=== PATIENT | male | born 1950 | race Caucasian/White ===

== ENCOUNTER → 2016-12-18 | Day surgery (SDC) | payer OTHER, MEDICARE ==
[2016-12-12 10:04] VITALS: BMI 38.9
[~2016-12-18] MED LIST: BSS 500 ml-Vancomycin 10 mg-Phenylephrine 1 mg Irrigation IR ONE; CHONDROITIN SULFATE 0.5 ML/PFS INTRAOC ONE; DEXAMETHASONE 4 MG/ML VIAL IV PRN; DIAZEPAM 5 MG TAB PO PRN; FENTANYL 100 MCG/2 ML VIAL IV PRN; FENTANYL 100 MCG/2 ML VIAL ONE; HYDROCODONE 5 MG/ACETAMIN 325 MG TAB PO PRN; Hyaluronate Sodium (Provisc) 5.5 mg/0.55 ml syringe INTRAOC ONE; KETOROLAC TROMETH 30 MG/ML VIAL IV PRN; LABETALOL 20 MG/4 ML SYRINGE IV PRN; LR 1,000 ML IV ONE; LR 1,000 ML IV SCH; MIDAZOLAM 2 MG/2 ML VIAL ONE; NS 1,000 ML IV SCH; NS 250 ML IV SCH; ONDANSETRON HCL 4 MG/2 ML VIAL IV PRN; PHENYLEPHRINE 2.5% OPHTH SOLN 2 ML BOT OP EYE ONE; SCOPOLAMINE TRANSDERMAL PATCH TOP PRN; TETRACAINE 0.5% 2 ML OPHTH SOLN OP EYE ONE; TETRACAINE 0.5% 2 ML OPHTH SOLN OP EYE PRN; TROPICAMIDE 1% OPHTH SOLN 2 ML BOTTLE OP EYE ONE; Vancomycin 10 MG, Phenylephrine 1,000 MCG in Balanced Salt Solution 500 ML IO ONE; hydrALAZINE 20 MG/ML VIAL IV PRN
--- NOTE | 2016-12-18 07:11 | SC.ANESEVA ---
Anesthesia Eval & Plan ([facility]) - Providers Stated Procedure: left eye Surgeon:: Neha Lobo - Medications/Allergies Allergies: Allergies No Known Allergies Allergy (Verified 01/28/14 06:21) Current Medication List: Reviewed - Focused Physical Exam NPO since: after Midnight Mallampati: Class II Thyromental Distance: Greater than 3 Neck: Full Range of Motion Cardiovascular/Chest: Normal Respiratory: Lungs clear Any problems with anesthesia, including nausea and vomiting?: No Any relatives with a history of Malignant Hyperthermia?: No Prone to Motion Sickness: No Other: Diagnoses COMBINED FORMS OF AGE-RELATED CATARACT, LEFT EYE (12/18/16) Allergies Allergy/AdvReac Type Severity Reaction Status Date / Time No Known Allergies Allergy Verified 01/28/14 06:21 Home Medications Medication Instructions Recorded Last Taken Type Aspirin [Aspirin, Chewable] 81 mg PO .EOD 03/13/13 01/29/14 08:00 History Atorvastatin Calcium [Lipitor] 40 mg PO DAILY 03/13/13 01/30/14 08:00 History CYANOCOBALAMIN (Vitamin B-12) 1,000 mcg SQ DAILY #1 vial 01/30/14 01/30/14 13: 00 Rx [Vitamin B-12 (cyanocobalamin)] Cetirizine HCl 10 mg PO DAILY 11/01/16 Unknown History Lacosamide [Vimpat] 50 mg PO BID 11/01/16 Unknown History Lamotrigine [Lamotrigine ER] 50 mg PO DAILY 11/01/16 Unknown History Metoprolol Succinate 25 mg PO DAILY 11/01/16 12/18/16 History Multivitamin [Multivitamins] 1 tab PO DAILY 11/01/16 Unknown History Pantoprazole Sodium [Protonix] 40 mg PO DAILY 11/01/16 12/18/16 History Prasugrel HCl [Effient] 10 mg PO DAILY 11/01/16 12/18/16 History Ramipril [Altace] 2.5 mg PO BID 11/01/16 Unknown History Height and Weight Patient's height 6 ft 1 in Patient's weight 134 kg Weight (Calculated Kilograms) 134.000 BMI 38.9 Vital Signs Temperature 97.4 F L 12/18/16 06:22 Pulse Rate 56 L 12/18/16 06:22 Respiratory Rate 20 12/18/16 06:22 Blood Pressure 111/56 L 12/18/16 06:22 Pulse Oxygen Saturation 97 12/18/16 06:22 - Anesthetic Plan Anesthesia Type: MAC ASA Class: 3 - Focused Review of Systems Cardiac History: Yes: Hx Hypertension, Hx Coronary Stent (STENTS X7 [place] ), Hx Cardiac Disorders, Hx Abnormal Cholesterol/Hyperlipidemia ( DYSLIPIDEMIA) HEENT: Yes: Hx Vision Problem (wears glasses) Respiratory: Yes: Hx Sleep Apnea (CPAP), Hx CPAP Dependent Gastrointestinal: Yes: Hx Gastroesophageal Reflux Disease, Hx Gastrointestinal Disorders, Hx Colonoscopy Neurological/Musculoskeletal: Yes: Hx Confusion (acute intermittent confusion- new onset), Hx Head Trauma (slight concusion abt 5 yrs ago) Smoking Status: Former smoker Surgical History: Yes: T&A
--- NOTE | 2016-12-18 07:42 | HIMOPRPT ---
DATE OF PROCEDURE: 12/18/16 PREOPERATIVE DIAGNOSIS: Cataract Left eye. POSTOPERATIVE DIAGNOSIS: Cataract Left eye. PROCEDURE: Cataract extraction by phacoemulsification of the Left eye SURGEON: Neha Lobo MD. ANESTHESIA: IV Sedation/Topical. COMPLICATIONS: None. PRE-OPERATIVE EVALUATION: The patient has been examined and deemed medically stable for cataract extraction with no apparent need for inpatient observation; outpatient setting is appropriate. Patient appears to be oriented to time, place and person. PROCEDURE IN DETAIL: The correct eye confirmed by patient, doctor, staff and paperwork. The operative eye was then marked by the doctor in the preoperative area. Eye drops were instilled into the operative eye to dilate the pupil. The patient was transported to the operating room and was placed in the supine position. A time out was performed before the beginning of the procedure. The operative eye was prepped and draped in the usual sterile fashion for ophthalmic surgery, taking care to isolate the lashes from the surgical field. Topical anesthetic drops were instilled into the operative eye. A lid speculum was placed. Betadine 5% was instilled in the operative eye for antiseptic. Microscope was brought into place for use throughout the case. The eye was inspected. A paracentesis incision was created with a side port knife. The temporal limbal corneal incision was performed with a shane blade. Viscoelastic was injected into the anterior chamber. Capsule forceps were used to create a capsulorhexis. Hydrodissection was performed with BSS. The nucleus was removed by phacoemulsification. Phaco time is noted below. The remaining cortical material was removed by I&A. The capsular bag was noted to be intact and distended with viscoelastic. The Intraocular lens was placed into the intact bag and centered without difficulty. The remaining viscoelastic was removed by I&A. Betadine 5% drops were placed to inspect wound and for antisepsis. Inspection revealed watertight wounds. The lid speculum was removed. Postoperative medications were instilled into the eye and a shield secured over the operative eye. IOL Type [id number] IOL Power 21.5 CDE 5.11 Discharge Summary: There were no complications and the patient was taken to the postoperative area in good condition. Postoperative instructions and outpatient follow up time were given.
[2016-12-18 07:49] VITALS: TEMP 97
[2016-12-18 07:50] VITALS: BP 99/54; PULSE 44
--- NOTE | 2016-12-18 09:17 | SC.ANESPOS ---
Post-Anesthesia Note LOC: Fully Awake Post-Anesthesia Assessment: Awake, Returned to Baseline, Hemodynamically Stable , Pain Control Adequate Phase I & II Recovery Complete: Yes Apparent Anesthesia Complication: No : N - Vital Signs Blood Pressure: 99/54 Pulse: 44 Resp Rate: 18 O2 Sat: 94 Temp: 97.0 F
== END ==
LOC: CPSC 06:05
PROVIDERS: ATTEND Ophthalmology
PROC: 08RK3JZ Replacement of Left Lens with Synthetic Substitute, Percutaneous Approach (ICD-10-PCS; principal; 2016-12-18 07:15)
DX: H25.812 Combined forms of age-related cataract, left eye (principal); I10 Essential (primary) hypertension; I25.10 Atherosclerotic heart disease of native coronary artery without angina pectoris; E78.5 Hyperlipidemia, unspecified; G47.30 Sleep apnea, unspecified; K21.9 Gastro-esophageal reflux disease without esophagitis; E66.9 Obesity, unspecified; Z95.5 Presence of coronary angioplasty implant and graft; Z87.891 Personal history of nicotine dependence; Z79.899 Other long term (current) drug therapy; Z68.38 Body mass index [BMI] 38.0-38.9, adult
CPT/HCPCS: 66984; J2250; J3010; J3490; V2632